=== PATIENT | female | born 1990 | race Caucasian/White ===

== ENCOUNTER 2018-06-23 05:30 | Inpatient (IN) | payer BC ==
[2018-06-24] MEDS ORDERED: Misoprostol 200 MCG TAB PR PRN (05:31)
[2018-06-24] MEDS ORDERED: Carboprost 250 MCG/ML AMP IM PRN (05:31)
[2018-06-24] MEDS ORDERED: Ondansetron PF 4 MG/2 ML Vial IVP PRN ×3 (05:31→22:28)
[2018-06-24] MEDS ORDERED: Methylergonovine 0.2 MG/ML VIAL IM PRN (05:31)
[2018-06-24] MEDS ORDERED: Ibuprofen 800 MG TAB PO PRN (05:31)
[2018-06-24] MEDS ORDERED: NS w/ Oxytocin 10 units 500 ML IV SCH ×2 (05:31)
[2018-06-24] MEDS ORDERED: Diphenoxylate HCl/Atropine Tablet PO PRN ×2 (05:31)
[2018-06-24] MEDS ORDERED: Promethazine HCl 25 MG/ML VIAL IM PRN ×3 (05:31→22:28)
[2018-06-24] MEDS ORDERED: HYDROcodone/Acetaminophen 5/325 mg Tablet PO PRN ×3 (05:31→22:28)
[2018-06-24] MEDS ORDERED: Butorphanol Tartrate 1 MG/ML VIAL SLOW IVP PRN (05:31)
[2018-06-24] MEDS ORDERED: Zolpidem Tartrate 5 MG TAB PO PRN ×2 (05:31→22:28)
[2018-06-24] MEDS ORDERED: Lidocaine 1% (PF) 30 ML VIAL SC PRN (05:31)
[2018-06-24] MEDS: Lactated Ringer's 1,000 ML IV SCH ×2 (06:11→13:47)
[2018-06-24 06:23] VITALS: BMI 25.0
[2018-06-24 06:35] LABS: Mean Corpuscular HGB CONC 34.5 g/dL (32.0-36.0); Mean Corpuscular Hemoglobin 32.8 pg (27.0-31.0); Mean Corpuscular Volume 95.1 fL (78.0-98.0); Mean Platelet Volume 8.5 fL (7.4-10.4); Platelet Count 220 thou/uL (130-400); RBC Distribution Width 11.2 % (11.5-14.5); Red Blood Cell (RBC) Count 3.95 mill/uL (4.20-5.40); White Blood Cell (WBC) Count 7.4 thou/uL (4.8-10.8)
[2018-06-24 06:53] LABS: HBSAg Index 0.19 S/CO (0-0.99); Hep B Surf Ag Non-Reactive S/CO (NonReactive); Syphilis Antibody Nonreactive (Nonreactive); Syphilis Antibody Index 0.05 S/CO (<1.00 Non-Reactive)
[2018-06-24] MEDS ORDERED: Fentanyl 4 mcg/Bup 0.1% Cadd 100 ML ONE (14:22)
[2018-06-24] MEDS ORDERED: diphenhydrAMINE 50 MG/ML VIAL IVP PRN (15:27)
[2018-06-24] MEDS ORDERED: Lactated Ringer's 500 ML IV PRN (15:27)
[2018-06-24] MEDS ORDERED: Naloxone HCl 0.4 mg/ml Vial IVP PRN ×2 (15:27)
[2018-06-24] MEDS ORDERED: Eucerin (Mineral Oil/Petrolatum,White) 30 gm Jar TOP PRN (15:27)
[2018-06-24] MEDS ORDERED: Acetaminophen 325 MG TAB PO PRN (15:27)
[2018-06-24] MEDS ORDERED: ePHEDrine/0.9% NaCl/PF SYRINGE 50 mg/10 ml SLOW IVP PRN (15:27)
[2018-06-24] MEDS ORDERED: Communication Order-Pharmacy FS SCH (15:30)
[2018-06-24] MEDS ORDERED: Fentanyl 4 mcg/Bupivacaine 0.1% Cassette 100 ML EPIDURAL SCH (15:30)
[2018-06-24] MEDS: NS / Oxytocin 40 units/1000ml 1,000 ML IV PRN ×2 (18:51→20:06)
[2018-06-24] MEDS ORDERED: NS / Oxytocin 40 units/1000ml 1,000 ML IV SCH (22:28)
[2018-06-24] MEDS ORDERED: diphenhydrAMINE 25 MG CAP PO PRN (22:28)
[2018-06-24] MEDS ORDERED: Bisacodyl 10 MG SUPP PR PRN (22:28)
[2018-06-24] MEDS ORDERED: Milk Of Magnesia 30 ML UDCUP PO PRN (22:28)
[2018-06-24] MEDS ORDERED: Lanolin Ointment 7 GM TUBE TOP PRN (22:28)
[2018-06-24] MEDS ORDERED: Preparation H Ointment 28 GM TUBE PR PRN (22:28)
[2018-06-24] MEDS ORDERED: Ibuprofen 800 MG TAB PO SCH (22:30)
[2018-06-24] MEDS: HYDROcodone/Acetaminophen 5/325 mg Tablet PO PRN (22:41)
[2018-06-24] MEDS: Docusate Calcium (SURFAK) 240 MG CAP PO SCH (22:41)
[2018-06-25] MEDS: HYDROcodone/Acetaminophen 5/325 mg Tablet PO PRN ×5 (03:07→23:49)
[2018-06-25] MEDS ORDERED: Benzocaine/Menthol 20-0.5% 60 ML CAN TOP PRN (03:45)
[2018-06-25 05:20] LABS: Hemoglobin 9.1 g/dL (12.0-16.0); Mean Corpuscular HGB CONC 34.1 g/dL (32.0-36.0); Mean Corpuscular Hemoglobin 32.9 pg (27.0-31.0); Mean Corpuscular Volume 96.2 fL (78.0-98.0); Mean Platelet Volume 8.1 fL (7.4-10.4); Platelet Count 171 thou/uL (130-400); RBC Distribution Width 11.1 % (11.5-14.5); Red Blood Cell (RBC) Count 2.76 mill/uL (4.20-5.40); White Blood Cell (WBC) Count 12.1 thou/uL (4.8-10.8)
[2018-06-25] MEDS: Ibuprofen 800 MG TAB PO SCH ×3 (06:04→22:00)
[2018-06-25] MEDS: Ferrous Sulfate 325 MG TAB PO SCH ×3 (07:58→16:54)
[2018-06-25] MEDS: Lactated Ringer's 1,000 ML IV SCH (07:59)
[2018-06-25] MEDS: Docusate Calcium (SURFAK) 240 MG CAP PO SCH ×2 (08:59→22:00)
[2018-06-25] MEDS ORDERED: Measles/Mumps/Rubella 10 MCG/0.5 ML VIAL SC ONE (09:00)
[2018-06-25] MEDS ORDERED: Adacel (T-DAP) 0.5 ML VIAL IM ONE (09:00)
[2018-06-25] MEDS ORDERED: Varicella virus, LIVE 0.5 ML VIAL SC ONE (09:00)
--- NOTE | 2018-06-25 21:50 | PDOC.PP ---
Post Progress Note Post Day #: 1 PO intake tolerated: yes Flatus: yes Ambulation: yes Vital Signs (12 hours) Temp Pulse Resp BP BP 06/25/18 17:25 98.0 F 91 20 113/71 06/25/18 11:00 97.9 F 80 18 103/60 Weight Weight 155 lb - Physical Examination General: NAD Cardiovascular: no m/r/g, RRR Respiratory: clear to auscultation bilaterally, non-labored breathing Abdominal: + bowel sounds, lochia, no distention, appropriately TTP Extremities: negative homans (B) Skin: CS incision dry & intact, no rash Neurological: no gross focal deficits Psychiatric: A&Ox3, normal affect Result Diagrams: 06/25/18 04:50 Additional Labs: Post Labs Blood Type O NEGATIVE 06/24/18 06:06 Hep Bs Antigen Non-Reactive S/CO (NonReactive) 06/24/18 06:07
[2018-06-26] MEDS: HYDROcodone/Acetaminophen 5/325 mg Tablet PO PRN (04:30)
[2018-06-26] MEDS: Ibuprofen 800 MG TAB PO SCH ×2 (06:15→13:39)
[2018-06-26 07:55] VITALS: BP 106/60; TEMP 98
[2018-06-26] MEDS: Ferrous Sulfate 325 MG TAB PO SCH (08:51)
[2018-06-26] MEDS: Docusate Calcium (SURFAK) 240 MG CAP PO SCH (08:52)
--- NOTE | 2018-07-09 13:44 | OP ---
DATE OF SERVICE: 06/24/2018 PREOPERATIVE DIAGNOSIS: Intrauterine at 39 weeks and 4 days with a term induction of labor for a [place] over [place] out of town. POSTOPERATIVE DIAGNOSIS: Intrauterine at 39 weeks and 4 days with a term induction of labo r for a patient living over an hour out of town. PROCEDURE: Spontaneous vaginal delivery over a second-degree laceration of the perineum. FINDINGS: Viable male weighing 3877 grams, which is 8 pounds 9 ounces, Apgars of 8 and 9. Qu antitative blood loss of 578 mL COMPLICATIONS: None. DETAILS OF THE PROCEDURE: The patient presented to [facility] where she was a dmitted to the Labor and Delivery service. The patient underwent a normal and uneventful labor with normal cervical dilatation until she was found to be completely dilated. She was then allowed to pus h and was able to bring the baby down and delivered the baby in a vertex presentation without difficu lties. Once the head delivered in occiput anterior position, the shoulders followed spontaneously al danny with the rest of the baby's body. Once out the baby's mouth and nose were bulb suctioned. The c ord was clamped and cut and baby was handed to waiting attendants. Cord blood was collected. Gentle Fundal massage was performed and the placenta delivered intact without problems. Hemostasis was ass ured. Quantitative blood loss was calculated. Inspection of the cervix, vaginal vault, and perineum did not reveal any lacerations needing suturing. Once again, hemostasis was within normal limits an d the patient was allowed to recover in the labor and delivery room. Baby went to nursery.
== END 2018-06-26 15:30 | disposition home or self-care (01) | DRG 807 ==
LOC: L&D 06-24 05:22 → 3SW 06-24 21:32
PROVIDERS: ADMIT Obstetrics & Gynecology; ATTEND Obstetrics & Gynecology
PROC: 10E0XZZ Delivery of Products of Conception, External Approach (ICD-10-PCS; principal; 2018-06-24)
DX: O80 Encounter for full-term uncomplicated delivery (principal); Z37.0 Single live birth; Z3A.39 39 weeks gestation of pregnancy
CPT/HCPCS: 36415; 51702; 85027; 86780; 86850; 86900; 86901; 87340; J0595; J2001; J2405

== ENCOUNTER 2020-09-28 21:23 | Inpatient (IN) | payer OTHER, MEDICAID ==
[~2020-09-28 21:23] MED LIST: Bupivacaine HCl 0.25%/Epi 0.0005/PF 10 ML VIAL FS ONE; Lidocaine 2% PF 5 ML VIAL ONE
[2020-09-28 22:10] VITALS: BMI 25.3
[2020-09-28] MEDS ORDERED: Meperidine HCl/PF 25 MG/ML VIAL IM/IV PRN (22:45)
[2020-09-28] MEDS ORDERED: Diphenoxylate HCl/Atropine Tablet PO PRN ×2 (22:45)
[2020-09-28] MEDS ORDERED: Ondansetron PF 4 MG/2 ML Vial IVP PRN (22:45)
[2020-09-28] MEDS ORDERED: hydrALAZINE 20 MG/ML VIAL SLOW IVP PRN (22:45)
[2020-09-28] MEDS ORDERED: Butorphanol Tartrate 1 MG/ML VIAL SLOW IVP PRN (22:45)
[2020-09-28] MEDS ORDERED: Acetaminophen 500 MG TAB PO PRN (22:45)
[2020-09-28] MEDS ORDERED: NS w/ Oxytocin 30 units 500 ML IV SCH ×2 (22:45)
[2020-09-28] MEDS ORDERED: Lidocaine 1% (PF) 30 ML VIAL SC PRN (22:45)
[2020-09-28] MEDS ORDERED: Ibuprofen 800 MG TAB PO PRN (22:45)
[2020-09-28] MEDS ORDERED: NS w/ Oxytocin 30 units 500 ML IVPB SCH (22:45)
[2020-09-28] MEDS ORDERED: Promethazine HCl 25 MG/ML VIAL IM PRN (22:45)
[2020-09-28] MEDS ORDERED: Carboprost 250 MCG/ML AMP IM PRN (22:45)
[2020-09-28] MEDS ORDERED: Methylergonovine 0.2 MG/ML VIAL IM PRN (22:45)
[2020-09-28] MEDS ORDERED: Misoprostol 200 MCG TAB RC PRN (22:45)
[2020-09-28] MEDS: Lactated Ringer's 1,000 ML IV SCH (23:00)
[2020-09-28 23:57] LABS: Hemoglobin 13.1 g/dL (12.0-16.0); Mean Corpuscular HGB CONC 35.1 g/dL (32.0-36.0); Mean Corpuscular Hemoglobin 34.8 pg (27.0-31.0); Mean Corpuscular Volume 99.3 fL (78.0-98.0); Mean Platelet Volume 9.1 fL (7.4-10.4); Platelet Count 153 thou/uL (130-400); RBC Distribution Width 11.8 % (11.5-14.5); Red Blood Cell (RBC) Count 3.76 mill/uL (4.20-5.40); White Blood Cell (WBC) Count 9.4 thou/uL (4.8-10.8)
[2020-09-29 00:35] LABS: Syphilis Antibody Nonreactive (Nonreactive); Syphilis Antibody Index 0.04 S/CO (<1.00 Non-Reactive)
[2020-09-29 00:36] LABS: Hep B Surf Ag Non-Reactive S/CO (NonReactive)
[2020-09-29] MEDS ORDERED: Fentanyl 4 mcg/Bup 0.1% Cadd 100 ML ONE (03:57)
[2020-09-29] MEDS: Lactated Ringer's 1,000 ML IV SCH ×2 (04:05→05:52)
[2020-09-29] MEDS ORDERED: ePHEDrine 50 MG/ML VIAL SLOW IVP PRN (04:46)
[2020-09-29] MEDS ORDERED: Ondansetron PF 4 MG/2 ML Vial IVP PRN ×2 (04:46→12:52)
[2020-09-29] MEDS ORDERED: Promethazine HCl 25 MG/ML VIAL IM PRN ×2 (04:46→12:52)
[2020-09-29] MEDS ORDERED: Lactated Ringer's 500 ML IV PRN (04:46)
[2020-09-29] MEDS ORDERED: diphenhydrAMINE 50 MG/ML VIAL IVP PRN (04:46)
[2020-09-29] MEDS ORDERED: Naloxone HCl 0.4 mg/ml Vial IVP PRN ×2 (04:46)
[2020-09-29] MEDS ORDERED: Acetaminophen 325 MG TAB PO PRN (04:46)
[2020-09-29] MEDS ORDERED: Communication Order-Pharmacy FS SCH (05:00)
[2020-09-29] MEDS ORDERED: Fentanyl 4 mcg/Bupivacaine 0.1% Cassette 100 ML EPIDURAL SCH (05:00)
[2020-09-29 05:34] LABS: SARS-CoV-2 PCR by NAA Not Detected (NotDetected)
[2020-09-29] MEDS ORDERED: hydrALAZINE 20 MG/ML VIAL ONE (10:37)
--- NOTE | 2020-09-29 11:44 | PDOC.LDHP ---
Labor and Delivery H&P Chief complaint: contractions HPI: 30 y/o at 38 and 1/7 weeks presents with spontaneous labor. Current gestational age (weeks): 38 Due date: 10/12/20 Grav: 2 Para: 1 Abnormal US findings: No Current medications: pre- vitamins Allergies/Adverse Reactions: Allergies Allergy/AdvReac Type Severity Reaction Status Date / Time sulfamethoxazole Allergy Intermediate Rash Verified 06/24/18 05:35 [From Bactrim] trimethoprim [From Bactrim] Allergy Intermediate Rash Verified 06/24/18 05:35 Social history: none - Physical Exam Vital signs reviewed and normal: yes General: NAD, breathing through contractions Heart: RRR Lungs: CTAB Abdomen: gravid Extremeties: no edema FHT: category 1 - Assessment L&D Assessment: term patient in labor - Plan Plan: admit to L&D, labor augmentation if indicated
[2020-09-29] MEDS ORDERED: Zolpidem Tartrate 5 MG TAB PO PRN (12:52)
[2020-09-29] MEDS ORDERED: Lanolin Ointment 7 GM TUBE TOP PRN (12:52)
[2020-09-29] MEDS ORDERED: HYDROcodone/Acetaminophen 5/325 mg Tablet PO PRN (12:52)
[2020-09-29] MEDS ORDERED: Preparation H Ointment 28 GM TUBE PR PRN (12:52)
[2020-09-29] MEDS ORDERED: Varicella virus, LIVE 0.5 ML VIAL SC ONE (12:52)
[2020-09-29] MEDS ORDERED: diphenhydrAMINE 25 MG CAP PO PRN (12:52)
[2020-09-29] MEDS ORDERED: Benzocaine-Menthol 82.5 ML CAN TOP PRN (12:52)
[2020-09-29] MEDS ORDERED: Methylergonovine 0.2 MG/ML VIAL IM PRN (12:52)
[2020-09-29] MEDS ORDERED: Misoprostol 200 MCG TAB VAG PRN (12:52)
[2020-09-29] MEDS ORDERED: NS / Oxytocin 40 units/1000ml 1,000 ML IV SCH (12:52)
[2020-09-29] MEDS ORDERED: Measles/Mumps/Rubella 10 MCG/0.5 ML VIAL SC ONE (12:52)
[2020-09-29] MEDS ORDERED: Bisacodyl 10 MG SUPP PR PRN (12:52)
[2020-09-29] MEDS ORDERED: Milk Of Magnesia 30 ML UDCUP PO PRN (12:52)
[2020-09-29] MEDS ORDERED: hydrALAZINE 20 MG/ML VIAL SLOW IVP PRN (12:52)
[2020-09-29] MEDS ORDERED: Adacel (T-DAP) 0.5 ML SYRINGE IM ONE (12:52)
[2020-09-29] MEDS ORDERED: NS w/ Oxytocin 30 units 500 ML ONE (13:04)
[2020-09-29] MEDS: Ibuprofen 800 MG TAB PO SCH ×2 (13:45→21:35)
[2020-09-29] MEDS: HYDROcodone/Acetaminophen 5/325 mg Tablet PO PRN ×2 (17:31→21:37)
[2020-09-29] MEDS: Ferrous Sulfate 325 MG TAB PO SCH (18:42)
[2020-09-29] MEDS ORDERED: FLU VACC QS2020-21(6MOS UP)/PF 60 MCG/0.5 ML SYRINGE IM ONE (21:00)
[2020-09-29] MEDS: Docusate Calcium (SURFAK) 240 MG CAP PO SCH (21:35)
[2020-09-30] MEDS: Ibuprofen 800 MG TAB PO SCH ×2 (05:38→13:19)
[2020-09-30 07:37] LABS: Hemoglobin 11.7 g/dL (12.0-16.0); Mean Platelet Volume 9.2 fL (7.4-10.4); Platelet Count 144 thou/uL (130-400); RBC Distribution Width 11.9 % (11.5-14.5); Red Blood Cell (RBC) Count 3.45 mill/uL (4.20-5.40); White Blood Cell (WBC) Count 11.9 thou/uL (4.8-10.8)
[2020-09-30] MEDS ORDERED: Prenatal Vitamin 1 TAB PO SCH (09:00)
[2020-09-30] MEDS: Ferrous Sulfate 325 MG TAB PO SCH ×2 (09:06→16:27)
[2020-09-30] MEDS: Docusate Calcium (SURFAK) 240 MG CAP PO SCH (10:10)
[2020-09-30] MEDS: HYDROcodone/Acetaminophen 5/325 mg Tablet PO PRN ×2 (10:10→16:24)
[2020-09-30 15:47] VITALS: BP 108/68; TEMP 98.2
--- NOTE | 2020-10-02 13:00 | DN ---
DATE OF PROCEDURE: 09/29/2020 TIME: 1216 Central Standard Time. PREOPERATIVE DIAGNOSIS: Intrauterine at 38 weeks and 1 day with spontaneous onset of labor. POSTOPERATIVE DIAGNOSIS: Intrauterine at 38 weeks and 1 day with spontaneous onset of labor. PROCEDURE: Spontaneous vaginal delivery over second-degree laceration of the perineum. FINDINGS: Viable male infant weighing 3301 g or 7 pounds 4 ounces, Apgars 8 and 9. QUANTITATIVE BLOOD LOSS: 200 mL. COMPLICATIONS: None. SPECIMENS: Placenta sent to lab for routine storage and disposal. DETAILS OF PROCEDURE: The patient presented to [facility] where she was admitted to the labor and delivery service. The patient underwent a normal and uneventful labor with normal cervical dilatation until she was found to be completely dilated. She was then allowed to push and was able to bring the baby down and delivered the baby in a vertex presentation without difficulties. Once the head delivered in occiput anterior position, the shoulders followed spontaneously along with the rest of the baby's body. Once out the baby's mouth and nose were bulb suctioned. The cord was clamped and cut and baby was handed to waiting attendants. Cord blood was collected. Gentle fundal massage was performed and the placenta delivered intact without problems. Hemostasis was assured. Quantitative blood loss was calculated. Inspection of the cervix, vaginal vault, and perineum did not reveal any lacerations needing suturing. Once again, hemostasis was within normal limits and the patient was allowed to recover in the labor and delivery room. Baby went to nursery. Job ID: [id number]
--- NOTE | 2020-10-02 13:00 | DIS ---
DATE OF ADMISSION: 09/28/2020 DATE OF DISCHARGE: 09/30/2020 Date of admission 09/28/2020 at 2308 and date of discharge 09/30/2020 at 1830. The patient presented at 38 weeks and 1 day in spontaneous labor. She was admitted and allowed to continued to labor. She delivered the following day by spontaneous vaginal delivery. She had no complications, and her course was excellent. She was discharged on day 1 to home without complications. Prescription for ibuprofen was offered. Infection and bleeding precautions were reviewed and clinic followup was arranged. Job ID: [id number]
== END 2020-09-30 18:30 | disposition home or self-care (01) | DRG 807 ==
LOC: L&D/OP 21:23 → L&D 23:08 → 3SW 09-29 16:06
PROVIDERS: ADMIT Obstetrics & Gynecology; ATTEND Obstetrics & Gynecology
PROC: 10E0XZZ Delivery of Products of Conception, External Approach (ICD-10-PCS; principal; 2020-09-29)
DX: O80 Encounter for full-term uncomplicated delivery (principal); Z37.0 Single live birth; Z3A.38 38 weeks gestation of pregnancy; Z20.822 Contact with and (suspected) exposure to COVID-19; Z88.1 Allergy status to other antibiotic agents; Z88.2 Allergy status to sulfonamides
CPT/HCPCS: 36415; 51702; 62272; 85027; 86780; 86850; 86870; 86900; 86901; 87340; 87635; 99285; J2001; J2405; J2590; U0003; U0005